=== PATIENT | female | born 1990 | race Caucasian/White ===

== ENCOUNTER → 2022-03-08 11:21 | Outpatient (CLI) | payer OTHER, SELFPAY ==
--- NOTE | 2022-03-08 | DI.MRI.S_ITS ---
PROCEDURE: MR KNEE RT WO CON INDICATIONS: Loose body in knee, right knee TECHNIQUE: Noncontrast sagittal PD fast spin echo and T2 fast spin echo with fat saturation, sagittal 3-D FLASH with fat saturation; coronal T1 spin echo and PD fast spin echo with fat saturation, and axial PD fast spin echo with fat saturation through the knee. COMPARISON: None. FINDINGS: Image quality: Excellent. Menisci: The medial and lateral menisci demonstrate normal morphology and internal signal. The meniscal root ligaments appear intact. Cruciate ligaments: The anterior and posterior cruciate ligaments appear intact. Medial structures: The medial collateral ligament appears intact. The posterior oblique ligament, semimembranosus tendon insertions, oblique popliteal ligament, and meniscocapsular junction appear intact. Visualized portions of the pes anserinus tendons appear normal. No abnormal bursal fluid. Lateral structures: The lateral collateral ligament, long and short heads of the biceps femoris tendon appear intact. The popliteus tendon appears normal; the popliteofibular ligament appears intact. The posterosuperior and anteroinferior popliteomeniscal fascicles appear intact. The arcuate and fabellofibular ligaments appear intact, on either side of the lateral inferior geniculate artery. Iliotibial band appears normal. Anterior structures: The quadriceps and patellar tendons appear intact. Lateral patellar subluxation. Mild lateral ventral trochlear prominence. Mild edema within the superolateral aspect of the infrapatellar fat pad. Bones and cartilage: No bone marrow contusions or fractures. Moderate articular cartilage loss overlies the lateral patellar facet inferiorly. Joint space: There is physiologic knee joint fluid. No Yancey's cyst. Normal appearing synovial plicae are incidentally noted. IMPRESSION: 1. Findings consistent with mild/early lateral patellofemoral friction syndrome in the appropriate clinical setting. There is associated lateral ventral trochlear prominence. 2. No internal derangement. 3. No evidence of intra-articular loose body. Dictated by: Ravinder Bush M.D. on 03/08/2022 at 11:34 Approved by: Ravinder Bush M.D. on 03/08/2022 at 11:37
== END ==
PROVIDERS: PCP Registered Nurse; Referring Provider Orthopaedic Surgery; Visit Provider Orthopaedic Surgery
DX: M23.41 Loose body in knee, right knee (principal)
CPT/HCPCS: 73721

== ENCOUNTER → 2022-07-27 11:48 | Outpatient (CLI) | payer OTHER, SELFPAY ==
[2022-07-27 12:25] LABS: COVID19 -Nasal RAPID Negative (Negative)
== END ==
PROVIDERS: PCP Registered Nurse; Referring Provider Orthopaedic Surgery; Visit Provider Orthopaedic Surgery
DX: Z20.822 Contact with and (suspected) exposure to COVID-19 (principal)
CPT/HCPCS: 87635; C9803

== ENCOUNTER 2022-07-28 09:52 | Day surgery (SDC) | payer OTHER, SELFPAY ==
[2022-07-23 12:17] VITALS: BMI 42.5
[2022-07-28 10:07] VITALS: BP 138/90; PULSE 106; RESP 12; TEMP 36.3; O2SAT 97; BMI 42.5
[2022-07-28] MEDS: LACTATED RINGERS 1,000 ML 84 ML IV (10:20)
--- NOTE | 2022-07-28 10:32 | PM.PREOP ---
Pre-operative Note COVID-19 COVID-19 status: Negative Result date/Date tested (Pos, Neg/Pending): 07/27/22 Interval Note History & Physical reviewed/Exam performed by Physician: Yes Changes to H&P: No
--- NOTE | 2022-07-28 11:20 | SUR.PREOP ---
Pt surgery cancelled, Dr Mehta spoke with patient, pt IV removed and given belongings, pt sent home.
== END 2022-07-28 09:55 | disposition home or self-care (01) ==
LOC: OR 09:53
PROVIDERS: PCP Registered Nurse; Referring Provider Orthopaedic Surgery; Visit Provider Orthopaedic Surgery
DX: M22.01 Recurrent dislocation of patella, right knee (principal); M25.461 Effusion, right knee; Z53.09 Procedure and treatment not carried out because of other contraindication
CPT/HCPCS: 27427; 81025; J2250; J2704; J3010

== ENCOUNTER → 2022-08-10 10:24 | Outpatient (CLI) | payer OTHER, SELFPAY ==
[2022-08-10 11:24] LABS: COVID19 -Nasal RAPID Negative (Negative)
== END ==
PROVIDERS: PCP Registered Nurse; Referring Provider Orthopaedic Surgery; Visit Provider Orthopaedic Surgery
DX: Z20.822 Contact with and (suspected) exposure to COVID-19 (principal)
CPT/HCPCS: 87635; C9803

== ENCOUNTER → 2022-09-14 12:58 | Outpatient (CLI) | payer OTHER, SELFPAY ==
[2022-09-14 13:59] LABS: COVID19 -Nasal RAPID Negative (Negative)
== END ==
PROVIDERS: PCP Registered Nurse; Referring Provider Orthopaedic Surgery; Visit Provider Orthopaedic Surgery
DX: Z20.822 Contact with and (suspected) exposure to COVID-19 (principal)
CPT/HCPCS: 87635; C9803

== ENCOUNTER 2022-09-15 07:00 | Day surgery (SDC) | payer OTHER, SELFPAY ==
[2022-09-10 10:46] VITALS: BMI 42.5
[2022-09-15] VITALS (14 sets, daily range): BP systolic 118–146; BP diastolic 68–96; PULSE 81–109; RESP 14–18; TEMP 36.1–36.9; O2SAT 92–99; BMI 38.9
--- NOTE | 2022-09-15 | DI.RAD.S_ITS ---
PROCEDURE: XR KNEE RT 1TO2V INDICATIONS: RIGHT KNEE REPAIR TECHNIQUE: 2 intraoperative views of the knee were acquired. COMPARISON: [facility] Outside Film, CR, XR KNEE 3 VIEWS RIGHT, 11/24/2021, 8:17. FINDINGS: Marker overlying the femoral condyle and in the lateral projection. No large joint effusion. IMPRESSION: Intraoperative guidance provided. Dictated by: Wesley Mancuso M.D. on 09/15/2022 at 13:15 Approved by: Wesley Mancuso M.D. on 09/15/2022 at 13:17
[2022-09-15] MEDS: LACTATED RINGERS 1,000 ML 42 ML IV (08:08)
--- NOTE | 2022-09-15 08:30 | PM.PREOP ---
Pre-operative Note COVID-19 COVID-19 status: Negative Result date/Date tested (Pos, Neg/Pending): 09/14/22 Interval Note History & Physical reviewed/Exam performed by Physician: Yes Changes to H&P: No
[2022-09-15] MEDS: SCOPOLAMINE 1 PATCH TOP (08:43)
--- NOTE | 2022-09-15 09:01 | SUR.PREOP ---
Block start time [0844] . Monitoring initiated and maintained throughout procedure. Oxygen and medications given per anesthesiologist instructions. Patient remained stable throughout procedure, no adverse reactions noted. Block end time [0853].
[2022-09-15] MEDS: CEFAZOLIN 2 GM/100 ML PREMIX 100 ML IV (09:14)
[2022-09-15] MEDS: BUPIVACAINE 0.5% W/ EPI (PF) 30 ML VIAL INJ (09:36)
--- NOTE | 2022-09-15 09:43 | SUR.OPER ---
pt supine on OR table, pillow under head, arms secured on bilateral armboards padded less than 90 degrees, left leg in stirrup, stirrup position placement by Dr Mehta, right leg in black leg huynh padded with gel secured with strap, all positioning finalized by Dr Mehta
--- NOTE | 2022-09-15 10:01 | SUR.OPER ---
LARGE C ARM UTILIZED
--- NOTE | 2022-09-15 10:36 | PM.OP.1 ---
Operative Date/Time/Diagnoses Date of procedure: 09/15/22 Time of procedure: 10:36 Pre-op diagnosis: Right knee patellar instability Post-op diagnosis: same Procedure & Clinicians Procedure: Right medial patellofemoral ligament reconstruction with gracilis autograft Same procedure as scheduled: Yes Indications: The patient is a 32-year-old woman who has had repetitive episodes of right patellar subluxation. These are painful and debilitating and she has requested we proceed with a ligament reconstruction after discussion of the risks benefits and alternatives. Risks discussed included but were not limited to: Failure to improve, stiffness, increased risk of osteoarthritis, infection, nerve damage, deep venous thrombosis, pulmonary embolism, stroke, myocardial infarction, permanent paralysis and . Surgeon: Sergei Mehta Soil Technologist: Golden Doan Click Yes if Unassisted: No Anesthesia Type: General, Peripheral nerve block and Local Operative Notes Findings: 3 quadrants lateral translation of the patella on exam under anesthesia prior to grafting, 1 quadrant after placement of the graft. Closure Type: primary Specimen(s): none sent Prosthetic devices, grafts, tissues, transplants, or devices: Implants used in this procedure were manufactured by the [employer] and included a 6 x 20 mm FastThread [employer] interference screw. Applied: implant(s) Estimated Blood Loss (mL): 10 Blood products transfused: none Tourniquet time (min): 43 Procedure in detail: The patient was seen in the preoperative area where she identified the right knee as the operative site and this was marked with my initials. She was taken to the operating room after undergoing a femoral nerve block. She was placed on the operating room table in a supine position where she underwent the induction with general anesthetic. A time checker-out was performed. She received preoperative antibiotics. Her knee was examined under anesthesia with the result given above. A tourniquet was placed about the proximal right thigh. The right leg was placed in an arthroscopic leg huynh. The left leg was placed in a stirrup and elevated to move it out of the path of the fluoroscopy. The foot of the table was dropped. The right leg was prepared with ChloraPrep in the usual fashion and draped through sterile drapes. The leg was elevated and exsanguinated with an Esmarch bandage and the tourniquet inflated to 250 mmHg. An approximately 2 cm incision was created overlying the pes anserinus. The sartorius fascia was elevated and the gracilis harvested with a closed ended tendon harvester. This was taken to the back table and prepared into a graft by Mr. Doan. Using the C-arm to assist with positioning, a 2 cm incision was created over the femoral origin of the medial patellofemoral ligament. A guide pin was placed in Schottle's point with confirmation both by palpation that it was in the sulcus and fluoroscopic verification. The graft had been measured at less than 6 mm when doubled over and a 6 mm tunnel was drilled over the guide pin. A 4 cm incision was then created over the superior patella. An incision was made in the medial patellar retinaculum next to the upper half of the patella and a tunnel created in the retinaculum to the femoral origin pin site. A passing suture was placed. The graft was then pulled into the femoral tunnel using the Beath pin. The 2 tails were brought up to the patella with the previously placed passing suture. The graft was adjusted to maintain graft in the femoral tunnel and allow approximately 5 mm of each tail end to be placed in a tunnel in the patella. A 6 mm x 20 mm interference screw was placed in the femoral socket. To docking sites were drilled in the patella at the level of half the patellar height and custodial between the equator and the proximal pole. These tunnels were 4 mm in diameter and measured approximately 15 mm in depth. The Beath pins used as guide pins for these holes were used to pull the suture across with 1 tail in each socket. The sutures were then tied on the lateral side of the patella with the patella centered in the trochlear groove to complete the patellar fixation. I then reexamined the knee for patellar instability and there was 1 quadrant lateral translation which was felt to be satisfactory stabilization without excessive constraint. All wounds were then closed with subcutaneous 3-0 Vicryl. The subcuticular layer was closed with a running 4-0 Monocryl. Skin was closed with Steri-Strips. Subcutaneous tissues were injected with 0.25% Marcaine for postoperative pain control. The wounds were dressed with sterile 4x4s, cast padding and an Kirk wrap and she was transported to the recovery room in good condition having tolerated the procedure well. The tourniquet was deflated during closure for total tourniquet time of 43 minutes. The assistance of a skilled dental assistant instructor was required during the surgery for retraction to protect vital structures, positioning, exposure and for graft preparation. Without the services of Mr. Doan the procedure would not have proceeded as expediently and safely. Complications: none Post-operative Condition: stable Disposition: PACU Plan for aftercare: The patient will be discharged today. She will remain on crutches until her block has worn off. At that point she will be on crutches for comfort. She will be placed on a physical therapy pill and to work on strengthening of her quadriceps and hamstrings and gait. She will follow up in my office in approximately 10-14 days. Prescriptions have been sent to the pharmacy for oxycodone and Vistaril. She is been instructed to use Tylenol and ibuprofen for additional pain control. We will also instruct her to use low-dose aspirin twice a day for DVT prophylaxis.
[2022-09-15] MEDS: ONDANSETRON 4 MG/2 ML INJ IV (10:53)
[2022-09-15] MEDS: OXYCODONE IR 5 MG TABLET PO ×2 (11:08→12:07)
[2022-09-15] MEDS: ACETAMINOPHEN 325 MG TABLET 975 MG PO (11:44)
[2022-09-15] MEDS: hydrOXYzine pamoate 25 MG CAPSULE PO (11:44)
[2022-09-15] MEDS: IBUPROFEN 600 MG TABLET PO (12:07)
== END 2022-09-15 12:41 | disposition home or self-care (01) ==
PROVIDERS: PCP Registered Nurse; Referring Provider Orthopaedic Surgery; Visit Provider Orthopaedic Surgery
PROC: 0QSD04Z Reposition Right Patella with Internal Fixation Device, Open Approach (ICD-10-PCS; CPT 27524; principal; 2022-09-15 08:45)
DX: M22.01 Recurrent dislocation of patella, right knee (principal); G89.18 Other acute postprocedural pain
CPT/HCPCS: 27427; 64450; 73560; 76000; 81025; J0690; J1100; J2250; J2405; J2704; J3010